=== PATIENT | female | born 2000 | race Caucasian/White ===

== ENCOUNTER 2018-06-17 20:47 | Emergency (ER) | payer BC ==
[2018-06-17 20:54] VITALS: BP 120/56
--- NOTE | 2018-06-17 20:58 | EDPHY ---
H & P Stated Complaint: pt says fell while hiking, landed on L elbow pushing shoulder , poss disloca Time Seen by Provider: 06/17/18 20:55 HPI/ROS: HPI: This is a 18-year-old female who presents with Chief Complaint: pt says fell while hiking, landed on L elbow pushing shoulder, poss disloca Location: Left shoulder Quality: Injury Duration: This afternoon approximately 5 date hours prior to arrival Signs and Symptoms: No bleeding, no radiation, no numbness, no weakness, no tingling, no incontinence, no decreased range of motion, no swelling, + pain, no fever Timing: Gradual onset Severity: Moderate Context: Patient is right-hand dominant, was walking this afternoon, approximately 5 date hours prior to arrival, with her hands in her pocket, when she accidentally slipped on the ice falling backwards. She landed directly onto her left elbow. Over the last few hours she has developed some left lateral shoulder and posterior pain that worsens with certain ranges of motion. She denies any weakness, paresthesias, decreased range of motion. She denies any pain in her elbow. She reports that she did not hit her head and does not have any neck pain. No LOC. She was ambulatory after the fall and continue to hike without any difficulty. Modifying Factors: No [id number] pain medications take Comment: ROS: A comprehensive 10 system review of systems is otherwise negative aside from elements mentioned in the history of present illness. MEDICAL/SURGICAL/SOCIAL HISTORY: Medical history: Generally healthy. Does not take any regular medications. Surgical history: Denies Social history: Never smoked. CONSTITUTIONAL: Extremely polite and cooperative well-developed well-nourished young adult white female. awake and alert, no obvious distress HEENT: Atraumatic and normocephalic. NECK: supple EXTREMITIES: 2/2 pulses, strength 5/5, left SHOULDER: Arc test abduction to 180, abduction to 45, horizontal flexion 130, horizontal extension to 45, deltoid strength 5/5. Mild pain with Neer test/Silva test (impingement). No Tenderness to palpation over AC joint. Left ELBOW: Full extension to 180, flexion to 150, no tenderness over medial epicondyle, no tenderness over lateral epicondyle, no effusion. DIP/PIP/MCP flexion/extension intact with good light touch sensation. no deformities, no clubbing, no cyanosis or edema. NEUROLOGICAL: no focal neuro deficits. GCS 15. Light touch sensation intact. SKIN: Warm and dry, no erythema. no rash. Good capillary refill. Source: Patient, Family (Father) Exam Limitations: No limitations - Medical/Surgical History Hx Asthma: No Hx Chronic Respiratory Disease: No Hx Diabetes: No Hx Cardiac Disease: No Hx Renal Disease: No Hx Cirrhosis: No Hx Alcoholism: No Hx HIV/AIDS: No Hx Splenectomy or Spleen Trauma: No Other PMH: none - Social History Smoking Status: Never smoked Constitutional: Initial Vital Signs Temperature (C) 37 C 06/17/18 20:50 Heart Rate 64 06/17/18 20:50 Respiratory Rate 16 06/17/18 20:50 Blood Pressure 120/56 L 06/17/18 20:50 O2 Sat (%) 97 06/17/18 20:50 O2 Delivery Mode Room Air Allergies/Adverse Reactions: No Known Allergies Allergy (Unverified 06/17/18 20:54) Home Medications: Medication Instructions Recorded NK [No Known Home Meds] 06/17/18 Medical Decision Making Procedures: Procedure: Splint placement. A left sling was applied by the emergency donor support technician. After application of the splint I returned and re-examined the patient. The splint was adequately immobilizing the joint and distal to the splint the patient's circulation and sensation was intact. ED Course/Re-evaluation: Vital signs reviewed and stable. Left shoulder x-ray ordered and my read shows no fracture/dislocation Suspect labral injury versus rotator cuff injury. Placed in sling with orthopedic follow-up if symptoms persist. No signs of neurovascular compromise/tenting of skin/compartment syndrome/ extremities and joints examined above and below area of concern and are neurovascularly intact. This patient was seen under the supervision of my secondary supervising physician. I evaluated care for this patient independently. Discussed this patient with Dr. Dennis. Differential Diagnosis: Differential diagnosis includes but is not limited to rotator cuff injury, labral injury, AC joint separation, clavicle fracture, humeral fracture, scapular fracture. Departure - Departure Disposition: Home, Routine, Self-Care Clinical Impression: Sprain of left shoulder joint Qualifiers: Encounter type: initial encounter Shoulder sprain type: unspecified sprain Qualified Code(s): S43.402A - Unspecified sprain of left shoulder joint, initial encounter Condition: Good Instructions: Shoulder Sprain (ED) Additional Instructions: Wear the sling while out of bed until pain free or seen by Orthopedics. Take Tylenol 650 mg every 4 hours and/or Ibuprofen 600 mg every 8 hours with food as needed for pain. Apply ice for 30 minutes at a time; 2-3 times per day for the next 1-2 days. Follow up with Orthopedics in 7-10 days if symptoms persist at which time they will evaluate and recommend with you if conservative management versus further imaging is indicated. The x-rays obtained in the emergency department today demonstrate no evidence of an obvious fracture or dislocation. Referrals: Ganesh Reinoso MD [Medical Doctor] - As per Instructions Stand Alone Forms: Physical Education Excuse
== END 2018-06-17 21:43 | disposition home or self-care (01) ==
DX: S43.402A Unspecified sprain of left shoulder joint, initial encounter (principal); W01.198A Fall on same level from slipping, tripping and stumbling with subsequent striking against other object, initial encounter; Y93.01 Activity, walking, marching and hiking; Y92.9 Unspecified place or not applicable
CPT/HCPCS: A4565